=== PATIENT | male | born 1945 | race African-American/Black ===

== ENCOUNTER 2017-08-05 07:24 | Inpatient (IN) | payer OTHER ==
[~2017-08-05] VITALS: Ht 172.7 cm; Wt 100.1 kg
--- NOTE | ~2017-08-05 | HC ---
[facility] [place] [address] CONSULTATION Name: WILEY SERRANO Room #: 357-P [facility] IN ..#: [id number] Admission: 08/05/17 Attend Phys: Christopher Osuna MD Discharge: 08/12/17 Date of : 49 Report #: [id number] THIS REPORT FOR: //name// CC: Christopher Cowan DATE OF SERVICE: 08/06/2017 ATTENDING PHYSICIAN: Dr. Osuna. REASON FOR CONSULTATION: Elevated creatinine and history of proteinuria. HISTORY OF PRESENT ILLNESS: The patient normally followed at the [place], longstanding diabetes, has known proteinuria and some renal insufficiency with a recent creatinine of 1.5. He has had urologic issues with previous prostate cancer treated with radiation therapy. More recently, hematuria with bladder bleeding, being fulgurated cystoscopically, now presenting with hematuria and more bladder bleeding with clots, some hydronephrosis and creatinine up from 1.5 to 2.3. PAST MEDICAL HISTORY: Previous heart block with pacemaker, history of longstanding diabetes and hypertension, prostate cancer in 2005 treated with radiation, and esophageal cancer in 2003 treated with chemotherapy and radiation. ALLERGIES: No known allergies. HOME MEDICATIONS: Include aspirin 81 mg daily, Lipitor 80 mg daily, Nexium 40 mg daily, finasteride 5 mg daily, furosemide 40 mg b.i.d., metformin 500 mg b.i.d., metoprolol tartrate 25 mg b.i.d., levothyroxine 50 mcg daily, thiamin and vitamin D3. SOCIAL HISTORY: He is not a smoker, but he is an ongoing daily beer and wine drinker. FAMILY HISTORY: Negative for renal disease. REVIEW OF SYSTEMS: GENERAL: He has been feeling okay. EYES: Vision is okay. ENT: Hearing okay, swallows okay. Denies mouth ulcers. ENDOCRINE: Positive for the diabetes and thyroid disease. RESPIRATORY: He is not short-winded, no pleuritic pain. No cough or hemoptysis. CARDIAC: Denies current chest pain or palpitations. GASTROINTESTINAL: Appetite fair. No nausea, vomiting, diarrhea or bloody [facility] [address] [place] [address] CONSULTATION Name: WILEY SERRANO Room #: 357-P [facility] IN [facility].#: [id number] Admission: 08/05/17 Attend Phys: Christopher Osuna MD Discharge: 08/12/17 Date of : 49 Report #: [id number]. GENITOURINARY: Difficulty with urination with hematuria as mentioned. NEUROLOGIC: He has been somewhat forgetful, weak, does not get around all that well. MUSCULOSKELETAL: He has had lower extremity edema and swelling. PHYSICAL EXAMINATION: GENERAL: This is a chronically ill-appearing gentleman in no acute distress. SKIN: Unremarkable. SKELETAL: Well developed, well nourished. HEENT: Extraocular movements are full. Vision intact. No scleral icterus. Hearing intact. Mucous membranes moist. NECK: Supple, no carotid bruits. CHEST: Clear. HEART: Regular. ABDOMEN: Shows some generalized tenderness and somewhat distended. EXTREMITIES: Show 2 to 3+ brawny edema of both lower extremities from the waist on down. NEUROLOGIC: Little bit forgetful. LABORATORY DATA: Hemoglobin ____ down to 6.3. Sodium 140, potassium 4.9, chloride 105, bicarbonate 29, BUN 43, creatinine 2.3. ASSESSMENT AND PLAN: 1. Jubbu-sw-fdkddiy kidney disease. Creatinine is up. He seems to have some chronic kidney disease may be diabetic nephropathy, acute elevated creatinine likely due to obstructive symptoms from this hematuria and clot retention. Hopefully, this will at least resolve. He does have some proteinuria, we will quantitate and check paraprotein studies for completeness. 2. Bladder bleeding with clot retention, previous radiation therapy for prostate cancer, likely the culprit here. 3. History of esophageal cancer status post chemo and radiation therapy. 4. Longstanding diabetes mellitus. 5. Longstanding hypertension. 6. Alcohol daily usage. 7. History of complete heart block with pacemaker. <ELECTRONICALLY SIGNED> By: Karlos Wooten MD 08/13/17 1053 0919 1055 Karlos Wooten MD /nt
--- NOTE | ~2017-08-05 | O ---
[facility] [place] [address] OPERATIVE REPORT Name: WILEY SERRANO Room #: 357-P [facility] IN M.R.#: [id number] Admission: 08/05/17 Attend Phys: Christopher Osuna MD Discharge: Date of : 49 Report #: [id number] THIS REPORT FOR: //name// CC: Christopher Cowan PREOPERATIVE DIAGNOSES: Gross hematuria with clot retention. POSTOPERATIVE DIAGNOSES: Gross hematuria with clot retention. PROCEDURE: Cystoscopy, evacuation of clots. SURGEON: Lars Kevin MD ANESTHESIA: General. INDICATIONS: The patient is a very pleasant 71-year-old gentleman who has been here this week with hematuria. CT shows persistent clot in his bladder, probably too large volume to expect the irrigation to remove. He was brought to the operating room for clot evacuation. Risks, benefits, complications have been discussed in detail. He understands risk of sepsis and bleeding and that this could recur. History is significant for undergoing radiation for prostate cancer in 2006. He understands complications could occur, which may not have been foreseen or discussed. He understands complications such as deep venous thrombosis, pulmonary embolism, heart attack, stroke and can occur. SURGICAL PROCEDURE: After obtaining informed consent, he was brought to the operating room, general anesthetic was administered, he was prepped and draped in lithotomy position by the operating personnel under anesthesia supervision. A timeout was performed. He is receiving IV antibiotics. The 21-Barbadian ACMI cystoscope was performed. The anterior urethra was normal. Prostatic urethra short and nonobstructive. Upon entering the bladder, there was a significant amount of clot in the bladder, really no visibility. It measured out to be about 75 mL of pure clot from within his bladder. At this point, the irrigant was totally clear. I inspected his bladder. There were no active bleeding sites. He had some edema on the floor of the bladder in the midline, probably consistent with the indwelling Rivera. I then withdrew the cystoscope and placed a 22-Barbadian 3-way Rivera catheter with 30 mL of water in the balloon. Continuous irrigation was applied and he was transferred to the recovery room. <ELECTRONICALLY SIGNED> By: Lars Kevin MD 08/11/17 0909 1809 1954 Lars Kevin MD /nt
--- NOTE | ~2017-08-05 | EKG ---
[address] [address] ELECTROCARDIOGRAM REPORT Name: WILEY SERRANO Room #: 357-P ADM IN M.R.#: [id number] Admission: 08/05/17 Attend Phys: Christopher Osuna MD Discharge: Date of : 49 Report #: [id number] THIS REPORT FOR: //name// [facility] ED Test Date: 2017-08-05 Test Time: 09:35:21 Pat Name: WILEY SERRANO Department: Room: 357 P Gender: M Utility Tractor Operator: JOHNNIE : 1945 Requested By: Darlene Peguero Order Number: [id number] MD: Pablo Lynch Measurements Intervals [place] Rate: 97 P: MN: 233 QRS: -82 QRSD: 154 T: 77 QT: 422 QTc: 536 Interpretive Statements A-V dual-paced rhythm with some inhibition No further analysis attempted due to paced rhythm No previous ECG available for comparison Electronically Signed On 08-05-2017 19:53:43 CDT by Pablo Lynch [email or web address] <ELECTRONICALLY SIGNED> By: Pablo Lynch MD 08/05/171952 4 4 Pablo Lynch MD /TESFAYE
[2017-08-05 07:25] VITALS: BP 176/97
[2017-08-05 07:56] LABS: ABSOLUTE NEUTROPHILS 16.3 thou/uL (1.4-8.2); CREATININE 2.2 mg/dL (0.7-1.3); EOSINOPHILS 0.3 % (0.0-3.0); HEMATOCRIT 26.2 % (42.0-52.0); HEMOGLOBIN 8.6 gm/dL (14.0-18.0); LYMPHOCYTES 5.6 % (24.0-44.0); MCH 28.1 pg (26.0-34.0); MCHC 32.7 g/dL (28.0-37.0); MCV 85.7 fL (80.0-100.0); MONOCYTES 6.9 % (1.0-8.0); PLATELET COUNT 313 thou/uL (150-400); POLYS 87.2 % (36.0-66.0); POTASSIUM 3.6 mmol/L (3.5-5.1); RBC 3.06 mil/uL (4.50-6.00); RDW 15.9 % (10.5-14.5); WBC 18.7 thou/uL (4.0-11.0)
[2017-08-05] MEDS ORDERED: LIPITOR80 MG PO (08:59)
[2017-08-05] MEDS ORDERED: TYLENOL325 MG PO (08:59)
[2017-08-05] MEDS ORDERED: ASPIR 8181 MG PO (08:59)
[2017-08-05] MEDS ORDERED: TESSALON PERLE100 MG PO (09:00)
[2017-08-05] MEDS ORDERED: PROSCAR 5MG TABL5 MG PO (09:00)
[2017-08-05] MEDS ORDERED: NEXIUM40 MG PO (09:00)
[2017-08-05] MEDS ORDERED: CLARITIN10 MG PO (09:01)
[2017-08-05] MEDS ORDERED: LOPRESSOR25 PO (09:01)
[2017-08-05] MEDS ORDERED: FOLIC ACID1 MG PO (09:01)
[2017-08-05] MEDS ORDERED: METFORMIN HCL500 MG PO (09:01)
[2017-08-05] MEDS ORDERED: LASIX 40 MG TAB40 M2 PO (09:01)
[2017-08-05] MEDS ORDERED: MIRALAX17 GM PO (09:02)
[2017-08-05] MEDS ORDERED: SYNTHROID50 MCG PO (09:02)
[2017-08-05] MEDS ORDERED: VITAMIN B-1100 M1 PO (09:02)
[2017-08-05] MEDS ORDERED: VITAMIN D3400 UNIT PO (09:03)
[2017-08-05 09:08] LABS: URINE BILIRUBIN NEGATIVE (Negative); URINE BLOOD 3+ (Negative); URINE CLARITY CLOUDY; URINE COLOR RED; URINE GLUCOSE-RANDOM* TRACE (Negative); URINE KETONES NEGATIVE (Negative); URINE LEUKOCYTES NEGATIVE (Negative); URINE NITRITE NEGATIVE (Negative); URINE PROTEIN (DIPSTICK) 3+ (Negative); URINE SPECIFIC GRAVITY 1.025 (1.005-1.035); URINE UROBILINOGEN 0.2 E.U./dl (0.2-1.0)
[2017-08-05 09:14] LABS: CASTS None Seen /LPF (None Seen); CRYSTALS None Seen /LPF (None Seen); SQUAMOUS None Seen /LPF (0-3); URINE RBC >20 Many /HPF (0-2)
[2017-08-05 09:15] LABS: BACTERIA 1-9 Few /HPF (None Seen); URINE WBC 6-15 Few /HPF (0-5)
[2017-08-05 09:38] LABS: ALBUMIN 3.2 g/dL (3.4-5.0); DIRECT BILIRUBIN 0.3 mg/dL (<0.1-0.3); TOTAL BILIRUBIN 0.6 mg/dL (<0.1-1.0); TOTAL PROTEIN 7.7 g/dL (6.4-8.2)
[2017-08-05 10:21] VITALS: BP 157/101
[2017-08-05 11:25] VITALS: BP 124/52
[2017-08-05 11:41] LABS: APTT 24.4 Seconds (24.5-32.8); INR 1.1
[2017-08-05 12:21] VITALS: BP 124/77
[2017-08-05 15:41] VITALS: BP 119/74
[2017-08-05 20:00] VITALS: BP 129/78
[2017-08-06] VITALS (10 sets, daily range): BP systolic 91–114; BP diastolic 65–76
[2017-08-06 05:55] LABS: MCH 28.4 pg (26.0-34.0)
[2017-08-06 06:00] LABS: MCHC 33.2 g/dL (28.0-37.0); MCV 85.5 fL (80.0-100.0); RBC 2.22 mil/uL (4.50-6.00)
[2017-08-06 06:02] LABS: CALCIUM 8.7 mg/dL (8.5-10.1); CREATININE 2.3 mg/dL (0.7-1.3)
[2017-08-06 06:07] LABS: POTASSIUM 4.9 mmol/L (3.5-5.1)
[2017-08-06 06:11] LABS: HEMOGLOBIN 6.3 gm/dL (14.0-18.0)
[2017-08-07 04:00] VITALS: BP 140/94
[2017-08-07 04:11] LABS: GLYCOHEMOGLOBIN (HGB A1C) 5.4 % (4.8-5.6)
[2017-08-07 05:39] LABS: ABSOLUTE NEUTROPHILS 14.3 thou/uL (1.4-8.2); BASOPHILS 0.2 % (0.0-2.0); HEMOGLOBIN 7.8 gm/dL (14.0-18.0); LYMPHOCYTES 5.3 % (24.0-44.0); MCH 28.5 pg (26.0-34.0); MCHC 32.7 g/dL (28.0-37.0); MONOCYTES 6.7 % (1.0-8.0); PLATELET COUNT 211 thou/uL (150-400); POLYS 86.8 % (36.0-66.0); RBC 2.76 mil/uL (4.50-6.00); RDW 15.4 % (10.5-14.5); WBC 16.5 thou/uL (4.0-11.0)
[2017-08-07 05:47] LABS: ALBUMIN 2.7 g/dL (3.4-5.0); CALCIUM 8.5 mg/dL (8.5-10.1); CREATININE 2.2 mg/dL (0.7-1.3); PHOSPHORUS 4.8 mg/dL (2.5-4.9)
[2017-08-07 05:50] LABS: POTASSIUM 3.8 mmol/L (3.5-5.1)
[2017-08-07 08:08] VITALS: BP 130/80
[2017-08-07 11:49] VITALS: BP 84/53
[2017-08-07 13:13] LABS: KAPPA/LAMBDA RATIO 2.02 (0.26-1.65); LAMBDA FREE LIGHT CHAINS 57.4 mg/L (5.7-26.3)
[2017-08-07 16:44] LABS: URINE PROTEIN-RANDOM* 10.5 mg/dL (<11.9)
[2017-08-07 16:58] LABS: URINE CREATININE-RANDOM* < 13.0 mg/dL
[2017-08-07 18:07] VITALS: BP 109/74
[2017-08-07 19:15] VITALS: BP 103/71
[2017-08-08 03:25] VITALS: BP 101/71
[2017-08-08 05:27] LABS: ABSOLUTE NEUTROPHILS 9.6 thou/uL (1.4-8.2); BASOPHILS 0.2 % (0.0-2.0); EOSINOPHILS 3.4 % (0.0-3.0); HEMATOCRIT 22.8 % (42.0-52.0); HEMOGLOBIN 7.5 gm/dL (14.0-18.0); LYMPHOCYTES 7.5 % (24.0-44.0); MCH 28.7 pg (26.0-34.0); MCHC 32.7 g/dL (28.0-37.0); MCV 87.8 fL (80.0-100.0); MONOCYTES 7.5 % (1.0-8.0); PLATELET COUNT 194 thou/uL (150-400); POLYS 81.4 % (36.0-66.0); RDW 15.3 % (10.5-14.5); WBC 11.8 thou/uL (4.0-11.0)
[2017-08-08 05:38] LABS: CALCIUM 8.5 mg/dL (8.5-10.1); POTASSIUM 3.8 mmol/L (3.5-5.1)
[2017-08-08 07:52] VITALS: BP 129/83
[2017-08-08 12:17] VITALS: BP 114/79
[2017-08-08 13:09] LABS: GLOBULIN TOTAL 3.1 g/dL (2.2-3.9); M-SPIKE Not Observed g/dL (Not Observed)
[2017-08-08 16:33] VITALS: BP 126/75
[2017-08-08 19:30] VITALS: BP 105/72
[2017-08-09 04:20] VITALS: BP 107/70
[2017-08-09 05:31] LABS: ALBUMIN 2.4 g/dL (3.4-5.0); CALCIUM 8.6 mg/dL (8.5-10.1); CREATININE 1.5 mg/dL (0.7-1.3); PHOSPHORUS 4.2 mg/dL (2.5-4.9); POTASSIUM 3.3 mmol/L (3.5-5.1)
[2017-08-09 06:55] VITALS: BP 105/70
[2017-08-09 15:17] VITALS: BP 102/71
[2017-08-09 19:25] VITALS: BP 101/69
[2017-08-10 04:00] VITALS: BP 102/67
[2017-08-10 07:47] VITALS: BP 104/77
[2017-08-10 11:15] VITALS: BP 120/73
[2017-08-10 18:50] VITALS: BP 93/63
[2017-08-11] VITALS: BP 102/56
[2017-08-11 04:20] VITALS: BP 98/62
[2017-08-11 08:43] VITALS: BP 104/66
[2017-08-11 09:04] LABS: CALCIUM 9.1 mg/dL (8.5-10.1); CREATININE 1.4 mg/dL (0.7-1.3); POTASSIUM 4.1 mmol/L (3.5-5.1)
[2017-08-11 09:36] LABS: ABSOLUTE NEUTROPHILS 8.7 thou/uL (1.4-8.2); BASOPHILS 0.3 % (0.0-2.0); EOSINOPHILS 4.1 % (0.0-3.0); HEMATOCRIT 21.4 % (42.0-52.0); HEMOGLOBIN 7.5 gm/dL (14.0-18.0); MCH 30.5 pg (26.0-34.0); MCV 87.1 fL (80.0-100.0); MONOCYTES 9.2 % (1.0-8.0); PLATELET COUNT 226 thou/uL (150-400); POLYS 78.4 % (36.0-66.0); RBC 2.46 mil/uL (4.50-6.00); RDW 16.1 % (10.5-14.5); WBC 11.1 thou/uL (4.0-11.0)
[2017-08-11 16:00] VITALS: BP 94/66
[2017-08-11 19:45] VITALS: BP 110/72
[2017-08-12 03:44] LABS: HEMATOCRIT 21.1 % (42.0-52.0); MCH 29.2 pg (26.0-34.0); MCHC 33.4 g/dL (28.0-37.0); MCV 87.5 fL (80.0-100.0); RBC 2.42 mil/uL (4.50-6.00); RDW 16.1 % (10.5-14.5)
[2017-08-12 03:49] LABS: CALCIUM 9.3 mg/dL (8.5-10.1); CREATININE 1.3 mg/dL (0.7-1.3); POTASSIUM 3.8 mmol/L (3.5-5.1)
[2017-08-12 04:00] VITALS: BP 115/71
[2017-08-12 07:15] VITALS: BP 120/81
[2017-08-12] MEDS ORDERED: LASIX 40 MG TAB40 M2 PO (11:40)
[2017-08-12] MEDS ORDERED: FLOMAX0.4 MG PO (11:40)
[2017-08-12] MEDS ORDERED: KEFLEX500 M1 PO (11:42)
== END 2017-08-12 16:35 | DRG 698 ==
LOC: ER 07:24 → EROBS 10:18 → 3W 10:18
PROVIDERS: Emergency Medicine; Hospitalist; Internal Medicine Nephrology; Specialist
PROC: 30233N1 Transfusion of Nonautologous Red Blood Cells into Peripheral Vein, Percutaneous Approach (ICD-10-PCS; principal; 2017-08-06)
PROC: 0TCB8ZZ Extirpation of Matter from Bladder, Via Natural or Artificial Opening Endoscopic (ICD-10-PCS; 2017-08-11)
DX: N30.41 Irradiation cystitis with hematuria (principal); N17.0 Acute kidney failure with tubular necrosis; E43 Unspecified severe protein-calorie malnutrition; N32.89 Other specified disorders of bladder; R31.0 Gross hematuria; N18.9 Chronic kidney disease, unspecified; R33.9 Retention of urine, unspecified; I25.10 Atherosclerotic heart disease of native coronary artery without angina pectoris; E87.6 Hypokalemia; D64.9 Anemia, unspecified; N13.9 Obstructive and reflux uropathy, unspecified; E03.9 Hypothyroidism, unspecified; I12.9 Hypertensive chronic kidney disease with stage 1 through stage 4 chronic kidney disease, or unspecified chronic kidney disease; E11.22 Type 2 diabetes mellitus with diabetic chronic kidney disease; Z59.0 Homelessness; Z79.82 Long term (current) use of aspirin; Z79.899 Other long term (current) drug therapy; Z85.46 Personal history of malignant neoplasm of prostate; Z92.21 Personal history of antineoplastic chemotherapy; Z68.33 Body mass index [BMI] 33.0-33.9, adult; Z95.0 Presence of cardiac pacemaker; Z85.01 Personal history of malignant neoplasm of esophagus; Z92.3 Personal history of irradiation
CPT/HCPCS: 10879; 50010; 50454; 50455; 56815

== ENCOUNTER 2017-08-17 16:54 | Emergency (ER) | payer OTHER ==
[~2017-08-17] VITALS: Ht 172.7 cm; Wt 96.2 kg
[~2017-08-17 16:54] MED LIST: ASPIR 8181 MG PO; CLARITIN10 MG PO; FLOMAX0.4 MG PO; FOLIC ACID1 MG PO; KEFLEX500 M1 PO; LASIX 40 MG TAB40 M2 PO; LIPITOR80 MG PO; LOPRESSOR25 PO; METFORMIN HCL500 MG PO; MIRALAX17 GM PO; NEXIUM40 MG PO; PROSCAR 5MG TABL5 MG PO; SYNTHROID50 MCG PO; TESSALON PERLE100 MG PO; TYLENOL325 MG PO; VITAMIN B-1100 M1 PO; VITAMIN D3400 UNIT PO
[2017-08-17 17:51] LABS: ABSOLUTE NEUTROPHILS 9.2 thou/uL (1.4-8.2); BASOPHILS 0.7 % (0.0-2.0); EOSINOPHILS 3.5 % (0.0-3.0); HEMATOCRIT 21.8 % (42.0-52.0); HEMOGLOBIN 7.2 gm/dL (14.0-18.0); MCH 28.1 pg (26.0-34.0); MCHC 32.9 g/dL (28.0-37.0); MCV 85.4 fL (80.0-100.0); MONOCYTES 6.6 % (1.0-8.0); PLATELET COUNT 272 thou/uL (150-400); POLYS 80.2 % (36.0-66.0); RBC 2.55 mil/uL (4.50-6.00); RDW 16.3 % (10.5-14.5); WBC 11.5 thou/uL (4.0-11.0)
[2017-08-17 19:23] LABS: CALCIUM 8.7 mg/dL (8.5-10.1); CREATININE 1.2 mg/dL (0.7-1.3); POTASSIUM 3.8 mmol/L (3.5-5.1)
[2017-08-17 19:29] LABS: ALBUMIN 2.8 g/dL (3.4-5.0); TOTAL BILIRUBIN 0.4 mg/dL (<0.1-1.0); TOTAL PROTEIN 6.6 g/dL (6.4-8.2)
== END 2017-08-17 21:01 | disposition home or self-care (01) ==
LOC: ER 16:54
PROVIDERS: Physician Assistant
DX: D64.9 Anemia, unspecified (principal); E11.9 Type 2 diabetes mellitus without complications; I10 Essential (primary) hypertension; I25.10 Atherosclerotic heart disease of native coronary artery without angina pectoris; E78.5 Hyperlipidemia, unspecified; K21.9 Gastro-esophageal reflux disease without esophagitis; Z85.46 Personal history of malignant neoplasm of prostate

== ENCOUNTER 2017-08-26 02:26 | Inpatient (IN) | payer OTHER ==
[~2017-08-26] VITALS: Ht 172.7 cm; Wt 117.9 kg
[2017-08-26 05:04] LABS: URINE BILIRUBIN NEGATIVE (Negative); URINE BLOOD 3+ (Negative); URINE CLARITY CLOUDY; URINE COLOR BROWN; URINE GLUCOSE-RANDOM* NEGATIVE (Negative); URINE KETONES NEGATIVE (Negative); URINE NITRITE-REFLEX NEGATIVE (Negative); URINE PROTEIN (DIPSTICK) 2+ (Negative); URINE UROBILINOGEN 0.2 E.U./dl (0.2-1.0)
[2017-08-26 05:10] LABS: URINE LEUKOCYTES-REFLEX 2+ (Negative)
[2017-08-26 05:13] LABS: AMORPHOUS URATES Moderate /LPF (None Seen); CASTS None Seen /LPF (None Seen); CRYSTALS None Seen /LPF (None Seen); MUCUS 0-3 Light strn/LPF (None Seen); SQUAMOUS >10 Many /LPF (0-3); URINE RBC >20 Many /HPF (0-2)
[2017-08-26 05:23] VITALS: BP 94/67
[2017-08-26 06:08] LABS: ABSOLUTE NEUTROPHILS 6.2 thou/uL (1.4-8.2); BASOPHILS 0.7 % (0.0-2.0); EOSINOPHILS 3.6 % (0.0-3.0); HEMATOCRIT 21.1 % (42.0-52.0); LYMPHOCYTES 12.6 % (24.0-44.0); MCHC 33.2 g/dL (28.0-37.0); MCV 84.2 fL (80.0-100.0); MONOCYTES 9.3 % (1.0-8.0); PLATELET COUNT 245 thou/uL (150-400); POLYS 73.8 % (36.0-66.0); RBC 2.51 mil/uL (4.50-6.00); RDW 17.1 % (10.5-14.5); WBC 8.4 thou/uL (4.0-11.0)
[2017-08-26 06:14] LABS: CALCIUM 9.1 mg/dL (8.5-10.1); CREATININE 1.3 mg/dL (0.7-1.3); POTASSIUM 4.3 mmol/L (3.5-5.1)
[2017-08-26 06:23] LABS: APTT 26.9 Seconds (24.5-32.8); INR 1.1; PROTIME 11.2 Seconds (9.3-11.4)
[2017-08-26 06:48] VITALS: BP 104/71
[2017-08-26 08:33] VITALS: BP 133/96
[2017-08-26 16:14] VITALS: BP 112/72
[2017-08-26 18:59] VITALS: BP 122/101
[2017-08-27 06:05] LABS: HEMATOCRIT 20.7 % (42.0-52.0); HEMOGLOBIN 6.7 gm/dL (14.0-18.0); MCH 27.1 pg (26.0-34.0); MCHC 32.3 g/dL (28.0-37.0); MCV 83.9 fL (80.0-100.0); RBC 2.47 mil/uL (4.50-6.00); RDW 17.5 % (10.5-14.5); WBC 6.5 thou/uL (4.0-11.0)
[2017-08-27 06:29] LABS: CREATININE 1.1 mg/dL (0.7-1.3)
[2017-08-27 15:09] VITALS: BP 100/72
[2017-08-27 15:43] LABS: % SATURATION 12 % (20-39); IRON 30 ug/dL (65-175); TIBC 249 ug/dL (250-450)
[2017-08-27 16:40] LABS: FOLIC ACID 30.6 ng/mL (8.6-58.9)
[2017-08-27 18:20] VITALS: BP 105/72
[2017-08-27 18:38] VITALS: BP 102/58; BP 106/74
[2017-08-27 20:00] VITALS: BP 98/66
[2017-08-28 04:28] VITALS: BP 111/77
[2017-08-28 06:03] LABS: ABSOLUTE NEUTROPHILS 4.8 thou/uL (1.4-8.2); BASOPHILS 0.3 % (0.0-2.0); EOSINOPHILS 5.5 % (0.0-3.0); HEMATOCRIT 23.2 % (42.0-52.0); HEMOGLOBIN 7.6 gm/dL (14.0-18.0); LYMPHOCYTES 12.3 % (24.0-44.0); MCH 27.6 pg (26.0-34.0); MCHC 32.6 g/dL (28.0-37.0); MCV 84.4 fL (80.0-100.0); MONOCYTES 9.2 % (1.0-8.0); PLATELET COUNT 231 thou/uL (150-400); POLYS 72.7 % (36.0-66.0); RBC 2.75 mil/uL (4.50-6.00); RDW 16.7 % (10.5-14.5); WBC 6.6 thou/uL (4.0-11.0)
[2017-08-28 06:15] LABS: CALCIUM 9.2 mg/dL (8.5-10.1); CREATININE 1.1 mg/dL (0.7-1.3); POTASSIUM 3.7 mmol/L (3.5-5.1)
[2017-08-28 07:19] VITALS: BP 107/77
[2017-08-28 15:12] VITALS: BP 102/66
[2017-08-28 16:31] VITALS: BP 109/65
[2017-08-28 19:22] VITALS: BP 103/74
[2017-08-29 03:27] VITALS: BP 111/71
[2017-08-29 08:25] VITALS: BP 144/77
[2017-08-29 08:51] LABS: ABSOLUTE NEUTROPHILS 6.3 thou/uL (1.4-8.2); BASOPHILS 0.4 % (0.0-2.0); EOSINOPHILS 3.6 % (0.0-3.0); HEMATOCRIT 24.6 % (42.0-52.0); HEMOGLOBIN 8.2 gm/dL (14.0-18.0); LYMPHOCYTES 8.6 % (24.0-44.0); MCH 28.4 pg (26.0-34.0); MCHC 33.5 g/dL (28.0-37.0); MCV 84.7 fL (80.0-100.0); MONOCYTES 10.2 % (1.0-8.0); PLATELET COUNT 226 thou/uL (150-400); POLYS 77.2 % (36.0-66.0); RDW 17.3 % (10.5-14.5); WBC 8.2 thou/uL (4.0-11.0)
== END 2017-08-29 16:04 | DRG 871 ==
LOC: ER 02:26 → 4W 04:40 → EROBS 04:40 → 4W 06:15
PROVIDERS: Emergency Medicine; Family Medicine; Nurse Practitioner Family
DX: A41.9 Sepsis, unspecified organism (principal); E43 Unspecified severe protein-calorie malnutrition; N30.21 Other chronic cystitis with hematuria; I25.10 Atherosclerotic heart disease of native coronary artery without angina pectoris; R33.9 Retention of urine, unspecified; K21.9 Gastro-esophageal reflux disease without esophagitis; D50.9 Iron deficiency anemia, unspecified; E11.9 Type 2 diabetes mellitus without complications; E78.5 Hyperlipidemia, unspecified; N13.9 Obstructive and reflux uropathy, unspecified; I25.2 Old myocardial infarction; Z85.46 Personal history of malignant neoplasm of prostate; Z68.39 Body mass index [BMI] 39.0-39.9, adult; Z95.5 Presence of coronary angioplasty implant and graft; Z85.01 Personal history of malignant neoplasm of esophagus
CPT/HCPCS: 10040

== ENCOUNTER 2017-09-12 11:40 | Emergency (ER) | payer OTHER ==
[~2017-09-12] VITALS: Ht 175.3 cm; Wt 110.2 kg
[2017-09-12 12:23] LABS: ABSOLUTE NEUTROPHILS 5.6 thou/uL (1.4-8.2); BASOPHILS 0.6 % (0.0-2.0); EOSINOPHILS 5.6 % (0.0-3.0); HEMATOCRIT 24.5 % (42.0-52.0); LYMPHOCYTES 8.8 % (24.0-44.0); MCH 27.2 pg (26.0-34.0); MCHC 32.9 g/dL (28.0-37.0); MCV 82.7 fL (80.0-100.0); MONOCYTES 9.5 % (1.0-8.0); PLATELET COUNT 187 thou/uL (150-400); POLYS 75.5 % (36.0-66.0); RBC 2.96 mil/uL (4.50-6.00); RDW 18.2 % (10.5-14.5); WBC 7.4 thou/uL (4.0-11.0)
[2017-09-12 12:33] LABS: POTASSIUM 5.1 mmol/L (3.5-5.1)
[2017-09-12 12:39] LABS: ALBUMIN 2.9 g/dL (3.4-5.0); DIRECT BILIRUBIN 0.2 mg/dL (<0.1-0.3); TOTAL BILIRUBIN 0.6 mg/dL (<0.1-1.0); TOTAL PROTEIN 6.8 g/dL (6.4-8.2)
[2017-09-12 12:45] LABS: URINE BILIRUBIN NEGATIVE (Negative); URINE BLOOD NEGATIVE (Negative); URINE CLARITY CLEAR; URINE COLOR YELLOW; URINE GLUCOSE-RANDOM* NEGATIVE (Negative); URINE KETONES NEGATIVE (Negative); URINE LEUKOCYTES NEGATIVE (Negative); URINE NITRITE NEGATIVE (Negative); URINE PROTEIN (DIPSTICK) NEGATIVE (Negative)
[2017-09-12] MEDS ORDERED: FLOMAX0.4 MG PO (13:50)
== END 2017-09-12 14:58 | disposition home or self-care (01) ==
LOC: ER 11:40
PROVIDERS: Emergency Medicine
DX: R33.9 Retention of urine, unspecified (principal); R39.15 Urgency of urination; M79.89 Other specified soft tissue disorders; I10 Essential (primary) hypertension; E11.9 Type 2 diabetes mellitus without complications; I25.10 Atherosclerotic heart disease of native coronary artery without angina pectoris; E78.5 Hyperlipidemia, unspecified; K21.9 Gastro-esophageal reflux disease without esophagitis; Z85.46 Personal history of malignant neoplasm of prostate

== ENCOUNTER 2017-09-21 01:40 | Inpatient (IN) | payer OTHER ==
[~2017-09-21] VITALS: Ht 172.7 cm; Wt 98.5 kg
--- NOTE | ~2017-09-21 | HC ---
[facility] [place] [address] CONSULTATION Name: WILEY SERRANO Room #: 460-P [facility] IN ..#: [id number] Admission: 09/21/17 Attend Phys: Aldo Marinelli MD Discharge: Date of : 49 Report #: [id number] THIS REPORT FOR: //name// CC: Lars Marinelli DATE OF SERVICE: 10/02/2017 REASON FOR CONSULTATION: I was asked to evaluate concerning enterococcal urinary tract infection. HISTORY OF PRESENT ILLNESS: The patient was a 71-year-old who was admitted on 09/21/2017 with obstructive uropathy. 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 Although urinalysis was unremarkable, he did reveal small colony counts of enterococcus. This was penicillin resistant. He has been treated with ceftriaxone. On 09/24/2017, he had a suprapubic catheter placed. He has good urine output from this. No fever, chills or sweats. His white count is normal. He has no current complaints. REVIEW OF SYSTEMS: Notes no cough, sputum, nausea, vomiting or diarrhea. He does have peripheral edema. Underlying diabetes. Coronary artery disease and complete heart block with a permanent pacemaker. ALLERGIES: None known. MEDICATIONS: As noted on his MAR, now off antibiotics. PAST MEDICAL HISTORY, FAMILY HISTORY AND SOCIAL HISTORY: Unchanged from his history and physical, which was reviewed in detail. REVIEW OF SYSTEMS: Noted above. PHYSICAL EXAMINATION: VITAL SIGNS: Afebrile, hemodynamically stable. GENERAL: He is sitting up in his chair. HEENT: Unremarkable. CHEST: Clear. HEART: Regular without murmur. ABDOMEN: Obese, soft and nontender. GENITOURINARY: Suprapubic catheter site unremarkable. Scrotal edema. EXTREMITIES: Lower extremity edema. LABORATORY STUDIES: Sodium 135, potassium 4.1, bicarbonate 30, creatinine 1.3. Hemoglobin 8.8, WBC 9.2, platelet count 192,000. Urinalysis from 09/29/2017 showed rare wbc's, few rbc's. No bacteria seen. Urine culture from 09/21/2017, [facility] [address] [address] CONSULTATION Name: WILEY SERRANO Abida Room #: 460-P [facility] IN [facility].#: [id number] Admission: 09/21/17 Attend Phys: Aldo Marinelli MD Discharge: Date of : 49 Report #: [id number] 50,000 Enterococcus faecium, ampicillin resistant. From 09/29/2017, 10,000 enterococcus species. Further identification pending. IMPRESSION: A 71-year-old diabetic with history of radiation cystitis, having outlet obstruction issues now with a suprapubic catheter. He seems to be doing well following catheter placement. He has low colony count of enterococcus, which is colonization of the urinary tract and catheter system. With no fever, leukocytosis, significant pyuria in the urine, I would recommend observation off antibiotics. If he should have further symptoms of urinary tract infection, would consider further treatment with Zyvox. <ELECTRONICALLY SIGNED> By: Jose Daniel Escobar MD 10/02/17 2026 0822 1002 Jose Daniel Escobar MD /nt
--- NOTE | ~2017-09-21 | HC ---
[facility] [place] [address] CONSULTATION Name: WILEY SERRANO Room #: 460-P [facility] IN ..#: [id number] Admission: 09/21/17 Attend Phys: Aldo Marinelli MD Discharge: Date of : 49 Report #: [id number] THIS REPORT FOR: //name// CC: Lars Marinelli REASON FOR CONSULTATION: Shortness of breath. HISTORY OF PRESENT ILLNESS: The patient is a 71-year-old gentleman with a complicated history including diabetes with diabetic nephropathy, iron deficiency anemia, radiation cystitis and recent admission for lower extremity edema, abdominal bloating and scrotal edema. I have been asked to see him in this regard. He denies chest pain, pressure or ischemic type symptoms. He lives in an assisted living environment. He has had recurrent hematuria and hemorrhagic cystitis. A CT scan and evaluation of his scrotal edema demonstrated bilateral pleural effusions and diffuse subcutaneous edema and anasarca. There is a moderate amount of abdominal and pelvic ascites. CT of the chest demonstrated no evidence of pulmonary embolism and coronary artery calcification was seen. The patient reports a pacemaker implantation about a year ago for symptomatic bradycardia. He does not think that it has been checked since then. This was performed at the [place]. In the past, he has seen Nephrology for diabetic nephropathy and urinary outflow tract obstruction. His baseline creatinine is around 1.5. ALLERGIES: No known drug allergies. MEDICATIONS: Include aspirin 81 mg daily; atorvastatin 80 mg daily; iron; finasteride 5 mg daily; Lasix 40 mg daily, he had been on previously 40 mg twice daily; metoprolol 25 mg twice daily; potassium 20 mEq daily; Flomax 0.4 mg daily and levothyroxine 50 mcg daily. PAST MEDICAL HISTORY: Medical records have been reviewed and include a history of heart block with pacemaker implantation, coronary artery disease with stenting in 2012, diabetes with end-organ manifestations, anemia, iron deficiency, radiation cystitis, prostate cancer in 2005, hypertension and dyslipidemia. SOCIAL HISTORY: He is not a smoker. FAMILY HISTORY: Negative for premature coronary disease. REVIEW OF SYSTEMS: All systems negative except as that noted above. PHYSICAL EXAMINATION: GENERAL: A pleasant gentleman who is alert and in no distress. VITAL SIGNS: Blood pressure is 122/73, heart rate of 88 and regular. He is [address] [address] CONSULTATION Name: WILEY SERRANO Room #: 460-[facility] IN [facility].#: [id number] Admission: 09/21/17 Attend Phys: Aldo Marinelli MD Discharge: Date of : 49 Report #: [id number] afebrile. His weight is 234 pounds. His weight in 07/2017 was 220 pounds. HEENT: There are neither xanthelasma, subcutaneous xanthomata, oral mucosal or digital cyanosis or kyphoscoliosis present. CHEST: Reveals diminished breath sounds at both bases. CARDIOVASCULAR: Regular rate and rhythm with normal S1 and S2. Jugular venous pressure is elevated. ABDOMEN: Soft, obese and nontender. EXTREMITIES: Revealed brawny edema. NEUROLOGIC: He is alert with a nonfocal exam. LABORATORY DATA: Sodium is 143, potassium 3.7 and creatinine 1.2. ProBNP of 2715. Iron level of 30. White count 8.3, hemoglobin 8 and platelet count 177. TSH 4.0. EKG: Ventricular pacing. Echocardiogram: Normal left ventricular systolic function, mildly dilated and hypokinetic right ventricle, moderate mitral insufficiency, pulmonary artery pressure of 50 mmHg. IMPRESSION: 1. Hwtip-ng-uvshjnr diastolic heart failure. 2. Anasarca; predominantly right-sided heart failure. 3. Diabetic nephropathy. 4. Anemia, iron deficient. 5. Diabetes. 6. Hypertension. 7. Coronary artery disease with prior stenting (2012), clinically stable. 8. Heart block with prior pacemaker. 9. Radiation cystitis with recurrent hematuria. 10. Prostate cancer with remote radiation therapy. RECOMMENDATIONS: 1. Intravenous Lasix therapy. 2. Supplemental iron. 3. Salt restriction. 4. Interrogate pacemaker. <ELECTRONICALLY SIGNED> By: Juan Pablo Fishman MD, [facility] 09/27/17 1044 1619 0623 Juan Pablo Fishman MD, FACC /nt
--- NOTE | ~2017-09-21 | 2DMMODE ---
[facility] [address] [place] [address] 2 D/M-MODE ECHOCARDIOGRAM Name: ZACHWILEY Room #: 460-P [facility] IN [facility]#: [id number] Admission: 09/21/17 Attend Phys: Aldo Marinelli MD Discharge: Date of : 49 Date of Service: 09/24/17 0906 Report #: [id number] THIS REPORT FOR: //name// APPROVED REPORT Study performed: 09/24/2017 07:54:28 EXAM: Comprehensive 2D, Doppler, and color-flow Echocardiogram Patient Location: Bedside Room #: [facility] Status: routine BSA: 2.17 HR: 96 bpm BP: 111/74 mmHg Other Information Study Quality: Adequate Indications Scrotal swelling, Hx CAD and pacemaker 2D Dimensions RVDd: 36.90 mm LVEF(%): 54.05 (>50%) IVSd: 9.89 (7-11mm) LVOT Diam: 22.79 (18-24mm) LVDd: 39.39 mm PWd: 9.35 (7-11mm) Ascending Ao: 27.42 (22-36mm) LVDs: 28.56 (25-40mm) Aortic Root: 27.45 mm IVC: 18.00 mm Morin's LVEF: 54.05 % Volumes Left Atrial Volume (Systole) Single Plane 4CH: 36.76 mL Single Plane 2CH: 44.10 mL LA ESV Index: 20.00 mL/m2 Aortic Valve AoV Peak Kirk.: 1.98 m/s AO Peak Gr.: 15.73 mmHg LVOT Max P.11 mmHg LVOT Max V: 1.24 m/s ELHAM Vmax: 2.54 cm2 AI Vmax: 3.99 m/s AI [place]: 2.86 m/s2 AI PHT: 404.99 ms Mitral Valve [facility] [address] [place] [address] 2 D/M-MODE ECHOCARDIOGRAM Name: WILEY SERRANO Room #: 460-P [facility]#: [id number] Admission: 09/21/17 Attend Phys: Aldo Marinelli MD Discharge: Date of : 49 Date of Service: 09/24/17 0906 Report #: [id number] MV Decel. Time: 176.18 ms MV E Max Kirk.: 1.30 m/s IVRT: 55.36 ms Pulmonary Valve PV Peak Kirk.: 0.96 m/s PV Peak Gr.: 3.71 mmHg Tricuspid Valve TR Peak Kirk.: 3.16 m/s RAP Estimate: 10.00 mmHg TR Peak Gr.: 40.04 mmHg PA Pressure: 50.00 mmHg Left Ventricle The left ventricle is normal size. There is normal LV segmental wall motion. There is normal left ventricular wall thickness. The left ventricular systolic function is normal. The left ventricular ejection fraction is within the normal range. LVEF is 60-65%. This study is not technically sufficient to allow evaluation of the LV diastolic function. Right Ventricle Right ventricle is mildly dilated. Right ventricle is moderately hypokinetic. Atria The left atrium size is normal. Right atrium is dilated. Aortic Valve The aortic valve mildly sclerotic Mild aortic regurgitation. There is no aortic valvular stenosis. Mitral Valve The mitral valve is normal in structure. Moderate mitral regurgitation. No evidence of mitral valve stenosis. Tricuspid Valve The tricuspid valve is normal in structure. Moderate tricuspid regurgitation. PAP is estimated at 50 mmHg. Pulmonic Valve Pulmonic valve is not well visualized. There is no pulmonic valvular regurgitation. Great Vessels The aortic root is normal in size. IVC is normal in size and collapses <50% with inspiration. [facility] [address] [place] [address] 2 D/M-MODE ECHOCARDIOGRAM Name: WILEY SERRANO Room #: 460-P [facility] IN ..#: [id number] Admission: 09/21/17 Attend Phys: Aldo Marinelli MD Discharge: Date of : 49 Date of Service: 09/24/17 0906 Report #: [id number] Pericardium There is no pericardial effusion. <Conclusion> The left ventricular systolic function is normal. There is normal LV segmental wall motion. LVEF 60-65%. Right ventricle and atrium are mildly dilated. The aortic valve mildly sclerotic. Mild aortic regurgitation, no stenosis. The mitral valve is normal in structure. Moderate mitral regurgitation. Moderate tricuspid regurgitation. Pulmonary artery pressure estimated at 50 mmHg. There is no pericardial effusion. <ELECTRONICALLY SIGNED> By: Juan Pablo Fishman MD, [facility] 09/24/17905 5 5 Juan Pablo Fishman MD, FAC /INF
[2017-09-21 01:42] VITALS: BP 116/65
[2017-09-21] MEDS ORDERED: FEOSOL325 M1 PO (02:12)
[2017-09-21] MEDS ORDERED: TIROSINT50 MCG PO (02:13)
[2017-09-21] MEDS ORDERED: POTASSIUM20 PO (02:14)
[2017-09-21] MEDS ORDERED: ADULT WAL-100 MG/5 M PO (02:15)
[2017-09-21 03:23] LABS: HEMATOCRIT 26.1 % (42.0-52.0); HEMOGLOBIN 8.2 gm/dL (14.0-18.0); MCH 26.3 pg (26.0-34.0); MCHC 31.5 g/dL (28.0-37.0); MCV 83.4 fL (80.0-100.0); RBC 3.13 mil/uL (4.50-6.00)
[2017-09-21 03:28] LABS: CALCIUM 8.9 mg/dL (8.5-10.1); CREATININE 1.3 mg/dL (0.7-1.3); POTASSIUM 4.5 mmol/L (3.5-5.1)
[2017-09-21 04:15] VITALS: BP 102/60
[2017-09-21 04:24] LABS: URINE BILIRUBIN NEGATIVE (Negative); URINE BLOOD 3+ (Negative); URINE CLARITY CLEAR; URINE COLOR YELLOW; URINE GLUCOSE-RANDOM* NEGATIVE (Negative); URINE KETONES NEGATIVE (Negative); URINE NITRITE-REFLEX NEGATIVE (Negative); URINE PROTEIN (DIPSTICK) NEGATIVE (Negative); URINE UROBILINOGEN 0.2 E.U./dl (0.2-1.0)
[2017-09-21 04:27] LABS: URINE LEUKOCYTES-REFLEX 1+ (Negative)
[2017-09-21 04:33] LABS: CASTS None Seen /LPF (None Seen); SQUAMOUS None Seen /LPF (0-3)
[2017-09-21 04:34] LABS: BACTERIA-REFLEX 1-9 Few /HPF (None Seen); CALCIUM OXALATE 0-3 Few /LPF (None Seen); URINE RBC 3-10 Few /HPF (0-2); URINE WBC-REFLEX 6-15 Few /HPF (0-5)
[2017-09-21 07:38] VITALS: BP 103/75
[2017-09-21 16:27] VITALS: BP 84/62
[2017-09-21 19:22] VITALS: BP 101/70
[2017-09-22 05:35] VITALS: BP 124/73
[2017-09-22 06:09] LABS: HEMATOCRIT 25.6 % (42.0-52.0); HEMOGLOBIN 8.3 gm/dL (14.0-18.0); MCH 26.8 pg (26.0-34.0); MCHC 32.6 g/dL (28.0-37.0); MCV 82.1 fL (80.0-100.0); RBC 3.11 mil/uL (4.50-6.00); RDW 19.4 % (10.5-14.5); WBC 8.8 thou/uL (4.0-11.0)
[2017-09-22 06:13] LABS: CALCIUM 9.1 mg/dL (8.5-10.1); CREATININE 1.3 mg/dL (0.7-1.3); POTASSIUM 4.4 mmol/L (3.5-5.1)
[2017-09-22 08:00] VITALS: BP 104/71
[2017-09-22 16:05] VITALS: BP 121/83
[2017-09-22 20:35] VITALS: BP 124/74
[2017-09-23 04:26] VITALS: BP 137/70
[2017-09-23 08:22] VITALS: BP 102/72
[2017-09-23 10:27] LABS: HEMATOCRIT 25.6 % (42.0-52.0); HEMOGLOBIN 8.3 gm/dL (14.0-18.0); MCH 26.6 pg (26.0-34.0); MCHC 32.2 g/dL (28.0-37.0); MCV 82.4 fL (80.0-100.0); RBC 3.11 mil/uL (4.50-6.00); RDW 19.2 % (10.5-14.5); WBC 8.8 thou/uL (4.0-11.0)
[2017-09-23 10:49] LABS: ALBUMIN 3.1 g/dL (3.4-5.0); CREATININE 1.3 mg/dL (0.7-1.3); MAGNESIUM 1.8 mg/dL (1.8-2.4); POTASSIUM 3.7 mmol/L (3.5-5.1); TOTAL BILIRUBIN 0.6 mg/dL (<0.1-1.0); TOTAL PROTEIN 6.7 g/dL (6.4-8.2)
[2017-09-23 16:12] VITALS: BP 94/67
[2017-09-23 21:00] VITALS: BP 120/70
[2017-09-24 04:30] VITALS: BP 111/74
[2017-09-24 08:40] LABS: INR 1.2; PROTIME 11.9 Seconds (9.3-11.4)
[2017-09-24 10:30] VITALS: BP 91/59
[2017-09-24 11:00] VITALS: BP 106/70
[2017-09-24 11:01] LABS: HEMATOCRIT 24.9 % (42.0-52.0); MCH 26.4 pg (26.0-34.0); MCHC 32.3 g/dL (28.0-37.0); MCV 81.8 fL (80.0-100.0); RBC 3.04 mil/uL (4.50-6.00); RDW 19.5 % (10.5-14.5); WBC 8.6 thou/uL (4.0-11.0)
[2017-09-24 11:09] LABS: ALBUMIN 3.1 g/dL (3.4-5.0); CALCIUM 9.1 mg/dL (8.5-10.1); CREATININE 1.3 mg/dL (0.7-1.3); MAGNESIUM 1.9 mg/dL (1.8-2.4); POTASSIUM 4.1 mmol/L (3.5-5.1); TOTAL BILIRUBIN 0.5 mg/dL (<0.1-1.0); TOTAL PROTEIN 6.4 g/dL (6.4-8.2)
[2017-09-24 12:00] VITALS: BP 104/78; BP 105/70
[2017-09-24 16:23] VITALS: BP 111/75
[2017-09-24 20:53] VITALS: BP 111/66
[2017-09-25 03:56] VITALS: BP 124/70
[2017-09-25 05:49] LABS: HEMATOCRIT 25.4 % (42.0-52.0); HEMOGLOBIN 8.1 gm/dL (14.0-18.0); MCH 26.3 pg (26.0-34.0); MCHC 31.9 g/dL (28.0-37.0); MCV 82.3 fL (80.0-100.0); RBC 3.09 mil/uL (4.50-6.00); RDW 19.1 % (10.5-14.5); WBC 9.2 thou/uL (4.0-11.0)
[2017-09-25 06:01] LABS: CREATININE 1.3 mg/dL (0.7-1.3); MAGNESIUM 1.8 mg/dL (1.8-2.4); POTASSIUM 4.1 mmol/L (3.5-5.1)
[2017-09-25 07:57] VITALS: BP 110/68
[2017-09-25 15:58] VITALS: BP 105/72
[2017-09-25 20:36] VITALS: BP 120/76
[2017-09-26 04:30] VITALS: BP 125/68
[2017-09-26 06:14] LABS: HEMATOCRIT 24.5 % (42.0-52.0); MCH 26.3 pg (26.0-34.0); MCHC 32.5 g/dL (28.0-37.0); MCV 81.1 fL (80.0-100.0); RBC 3.02 mil/uL (4.50-6.00); RDW 19.6 % (10.5-14.5); WBC 8.3 thou/uL (4.0-11.0)
[2017-09-26 06:27] LABS: CALCIUM 8.9 mg/dL (8.5-10.1); CREATININE 1.2 mg/dL (0.7-1.3); MAGNESIUM 1.7 mg/dL (1.8-2.4); POTASSIUM 3.7 mmol/L (3.5-5.1)
[2017-09-26 08:00] VITALS: BP 122/73
[2017-09-26 16:00] VITALS: BP 110/66; BP 94/63
[2017-09-26 22:22] VITALS: BP 126/69
[2017-09-27 05:49] LABS: HEMATOCRIT 25.1 % (42.0-52.0); HEMOGLOBIN 8.2 gm/dL (14.0-18.0); MCH 26.3 pg (26.0-34.0); MCHC 32.5 g/dL (28.0-37.0); MCV 80.9 fL (80.0-100.0); RBC 3.1 mil/uL (4.50-6.00); RDW 19.6 % (10.5-14.5); WBC 7.7 thou/uL (4.0-11.0)
[2017-09-27 05:58] LABS: CALCIUM 9.2 mg/dL (8.5-10.1); CREATININE 1.2 mg/dL (0.7-1.3); MAGNESIUM 1.7 mg/dL (1.8-2.4); POTASSIUM 3.6 mmol/L (3.5-5.1)
[2017-09-27 07:16] VITALS: BP 118/78
[2017-09-27 08:20] VITALS: BP 119/69
[2017-09-27 15:38] VITALS: BP 120/74
[2017-09-27 19:50] VITALS: BP 119/72
[2017-09-28 03:21] VITALS: BP 108/74
[2017-09-28 06:43] LABS: HEMATOCRIT 27.2 % (42.0-52.0); HEMOGLOBIN 8.8 gm/dL (14.0-18.0); MCH 26.2 pg (26.0-34.0); MCHC 32.5 g/dL (28.0-37.0); MCV 80.5 fL (80.0-100.0); RBC 3.38 mil/uL (4.50-6.00); RDW 18.8 % (10.5-14.5); WBC 9.2 thou/uL (4.0-11.0)
[2017-09-28 06:56] LABS: CALCIUM 9.6 mg/dL (8.5-10.1); CREATININE 1.2 mg/dL (0.7-1.3); MAGNESIUM 1.7 mg/dL (1.8-2.4); POTASSIUM 3.7 mmol/L (3.5-5.1)
[2017-09-28 08:18] VITALS: BP 112/73
[2017-09-28 11:10] VITALS: BP 118/75
[2017-09-28 15:52] VITALS: BP 101/60
[2017-09-28 19:46] VITALS: BP 97/67
[2017-09-29 03:35] VITALS: BP 101/67
[2017-09-29 04:34] LABS: CALCIUM 9.2 mg/dL (8.5-10.1); CREATININE 1.3 mg/dL (0.7-1.3); POTASSIUM 3.7 mmol/L (3.5-5.1)
[2017-09-29 09:28] VITALS: BP 113/60
[2017-09-29 16:09] VITALS: BP 97/55
[2017-09-29 18:40] LABS: URINE BILIRUBIN NEGATIVE (Negative); URINE BLOOD 2+ (Negative); URINE CLARITY CLEAR; URINE COLOR YELLOW; URINE GLUCOSE-RANDOM* NEGATIVE (Negative); URINE KETONES NEGATIVE (Negative); URINE NITRITE-REFLEX NEGATIVE (Negative); URINE PROTEIN (DIPSTICK) NEGATIVE (Negative); URINE SPECIFIC GRAVITY <= 1.005 (1.005-1.035); URINE UROBILINOGEN 0.2 E.U./dl (0.2-1.0)
[2017-09-29 18:41] LABS: URINE LEUKOCYTES-REFLEX TRACE (Negative)
[2017-09-29 18:44] LABS: BACTERIA-REFLEX None Seen /HPF (None Seen); SQUAMOUS None Seen /LPF (0-3); URINE RBC 3-10 Few /HPF (0-2); URINE WBC-REFLEX 0-5 Rare /HPF (0-5)
[2017-09-29 18:45] LABS: CASTS None Seen /LPF (None Seen); CRYSTALS None Seen /LPF (None Seen)
[2017-09-29 19:18] VITALS: BP 102/60
[2017-09-30 08:00] VITALS: BP 95/64
[2017-09-30 10:28] LABS: CREATININE 1.3 mg/dL (0.7-1.3); POTASSIUM 3.3 mmol/L (3.5-5.1)
[2017-09-30 16:00] VITALS: BP 94/68
[2017-09-30 19:24] VITALS: BP 102/68
[2017-10-01 03:18] VITALS: BP 98/61
[2017-10-01 06:09] LABS: CALCIUM 9.2 mg/dL (8.5-10.1); CREATININE 1.3 mg/dL (0.7-1.3); POTASSIUM 3.6 mmol/L (3.5-5.1)
[2017-10-01 09:30] VITALS: BP 104/61
[2017-10-01 17:34] VITALS: BP 95/62
[2017-10-01 20:00] VITALS: BP 90/52
[2017-10-02 04:00] VITALS: BP 110/60
[2017-10-02 07:52] VITALS: BP 90/55
[2017-10-02 08:03] LABS: CALCIUM 9.3 mg/dL (8.5-10.1); CREATININE 1.3 mg/dL (0.7-1.3); POTASSIUM 4.1 mmol/L (3.5-5.1)
[2017-10-02 16:13] VITALS: BP 94/55
[2017-10-02 19:18] VITALS: BP 109/65
[2017-10-03 04:14] VITALS: BP 102/59
[2017-10-03 06:02] LABS: CALCIUM 9.2 mg/dL (8.5-10.1); CREATININE 1.6 mg/dL (0.7-1.3); POTASSIUM 3.9 mmol/L (3.5-5.1)
[2017-10-03 08:00] VITALS: BP 100/64
[2017-10-03] MEDS ORDERED: DEMADEX20 MG PO (12:07)
[2017-10-03] MEDS ORDERED: MUCINEX600 MG PO (12:07)
[2017-10-03] MEDS ORDERED: NOVOLOG100 UNIT/1 SUBQ (12:07)
[2017-10-03] MEDS ORDERED: DUONEB 2.5-0.5 M3 ML INH (12:07)
[2017-10-03] MEDS ORDERED: MAG6464 MG PO (12:07)
[2017-10-03] MEDS ORDERED: POTASSIUM20 PO (12:07)
== END 2017-10-03 14:32 | DRG 871 ==
LOC: ER 01:40 → EROBS 03:37 → 4W 03:37
PROVIDERS: Emergency Medicine; Internal Medicine; Internal Medicine Cardiovascular Disease; Nurse Practitioner Family; Radiology Diagnostic Radiology
PROC: 0D9630Z Drainage of Stomach with Drainage Device, Percutaneous Approach (ICD-10-PCS; principal; 2017-09-21)
DX: A41.9 Sepsis, unspecified organism (principal); I50.33 Acute on chronic diastolic (congestive) heart failure; C15.9 Malignant neoplasm of esophagus, unspecified; I13.0 Hypertensive heart and chronic kidney disease with heart failure and stage 1 through stage 4 chronic kidney disease, or unspecified chronic kidney disease; N30.41 Irradiation cystitis with hematuria; N13.8 Other obstructive and reflux uropathy; I25.10 Atherosclerotic heart disease of native coronary artery without angina pectoris; E78.5 Hyperlipidemia, unspecified; K21.9 Gastro-esophageal reflux disease without esophagitis; C61 Malignant neoplasm of prostate; Z95.5 Presence of coronary angioplasty implant and graft; Z95.0 Presence of cardiac pacemaker; E11.21 Type 2 diabetes mellitus with diabetic nephropathy; Z79.4 Long term (current) use of insulin; D50.9 Iron deficiency anemia, unspecified; N30.91 Cystitis, unspecified with hematuria; B96.20 Unspecified Escherichia coli [E. coli] as the cause of diseases classified elsewhere; R60.1 Generalized edema; E11.22 Type 2 diabetes mellitus with diabetic chronic kidney disease; N18.9 Chronic kidney disease, unspecified; I45.9 Conduction disorder, unspecified; E83.42 Hypomagnesemia; T85.9XXA Unspecified complication of internal prosthetic device, implant and graft, initial encounter
CPT/HCPCS: 10040